=== PATIENT | male | born 1980 | race Caucasian/White ===

== ENCOUNTER → 2018-04-13 | Day surgery (SDC) | payer BC ==
--- NOTE | 2018-04-13 15:07 | MRI ---
MRI OF THE ABDOMEN WITH AND WITHOUT CONTRAST UTILIZING ENTEROGRAPHY PROTOCOL: Date: 04/13/18 INDICATION: History of Crohn's disease with partial bowel resection approximately 8 months ago. The patient is conroy ving diarrhea again that started 2 months ago. COMPARISON: CT of the abdomen and pelvis without contrast dated 04/12/08. TECHNIQUE: Multiplanar, multisequence MR images were obtained of the abdomen with and without contrast utilizing enterography protocol. MR enteric contrast was administered. 20 mL of MultiHance was administered. FINDINGS: There is postsurgical change of right hemicolectomy in the ileocolonic anastomosis within the right u pper quadrant of the abdomen. There are a few regions of peristaltic bowel that are slightly difficult to evaluate within the regio n of the jejunum. No apparent wall thickening or perienteric inflammatory stranding is grossly eviden t when reviewing the postcontrast images and T2-weighted images. No drainable fluid collection is malcolm dent. There are bilateral small renal cysts. The largest is seen within the inferior pole measuring 1.9 cm. The visualized colon appears within normal limits without active bowel wall thickening. IMPRESSION: 1. No appreciable bowel wall thickening or periintestinal inflammatory stranding seen involving the colon and small bowel. No drainable fluid collection is evident. 2. Postsurgical change of right hemicolectomy and establishment of an ileocolonic anastomosis within the right upper quadrant of the abdomen. 3. Bilateral renal cysts. POS: [facility]
== END ==
LOC: SDC/OP 12:28 → EDSTATUS 13:00
DX: R19.7 Diarrhea, unspecified (principal); K50.90 Crohn's disease, unspecified, without complications; Z90.49 Acquired absence of other specified parts of digestive tract
CPT/HCPCS: 74183; J1610